=== PATIENT | male | born 1995 | race Caucasian/White ===

== ENCOUNTER 2017-02-09 14:56 | Emergency (ER) | payer BC, OTHER ==
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
[2017-02-09 17:00] VITALS: BP 125/88
--- NOTE | 2017-02-09 17:00 | RAD ---
Indication: Nasal pain and swelling following direct trauma. Comparison: No relevant prior exams available on the [facility] for comparison. Technique: Routine views of the nasal bones. Report: Soft tissue swelling over the bridge of the nose without evidence for nasal bone fracture. Normally aerated visualized paranasal sinuses. IMPRESSION: Negative for nasal bone fracture.
== END 2017-02-09 17:27 | disposition home or self-care (01) ==
LOC: UCEAST 14:56
DX: S00.33XA Contusion of nose, initial encounter (principal); S05.12XA Contusion of eyeball and orbital tissues, left eye, initial encounter; S05.11XA Contusion of eyeball and orbital tissues, right eye, initial encounter; Y04.2XXA Assault by strike against or bumped into by another person, initial encounter; Y93.89 Activity, other specified; Y92.159 Unspecified place in reform school as the place of occurrence of the external cause; Y99.0 Civilian activity done for income or pay
CPT/HCPCS: 70160; 99212; G0463

== ENCOUNTER 2017-07-24 18:00 | Emergency (ER) | payer BC, OTHER ==
[2017-07-24 18:40] VITALS: BP 131/82
--- NOTE | 2017-07-24 18:45 | UC ---
Skin Complaint HPI - HPI Summary HPI Summary: Pt presents accompanied by mother with complaints of hives on his legs and arms for the past week. He tells me that about 2 years ago he had this same thing happen and he was seen by an helper animal laboratory and tested for food allergies - which was negative. His hives eventually went away. Today he tells me that over the past week the same thing is happening. He will change from a cold to warm - or warm to cold - environment and he will get hives on his legs and arms within minutes that itch. They will remain there for up to 45 minutes and then go away. He has no other symptoms during this time frame. He is rather frustrated today and is asking for labwork and a referral to an helper animal laboratory that will test him for ENVIRONMENTAL allergies and not just food allergies. Currently he has no symptoms and no rashes/hives. - History of Current Complaint Chief Complaint: UCSkin Time Seen by Provider: 07/24/17 18:42 Stated Complaint: RASH Hx Obtained From: Patient Onset/Duration: Sudden Onset Pain Intensity: 0 Character: Exposure to Cold Continuous, Exposure to Heat Continuous, Hives - Allergy/Home Medications Allergies/Adverse Reactions: Allergies Allergy/AdvReac Type Severity Reaction Status Date / Time pet dander Allergy Shortness Uncoded 07/24/17 18:40 of Breath Review of Systems Constitutional: Negative Skin: Other - Hives ENT: Negative Respiratory: Negative Cardiovascular: Negative Gastrointestinal: Negative Musculoskeletal: Negative Neurological: Negative Psychological: Negative All Other Systems Reviewed And Are Negative: Yes PMH/Surg Hx/FS Hx/Imm Hx Previously Healthy: Yes - Surgical History Surgical History: None - Family History Known Family History: Positive: Hypertension, Other - NO pE> - Social History Occupation: Student Lives: With Family Alcohol Use: Occasionally Substance Use Type: Marijuana Substance Use Comment - Amount & Last Used: daily Smoking Status (MU): Never Smoked Tobacco Type: Cigarettes Amount Used/How Often: 1-2 per day Have You Smoked in the Last Year: No - Immunization History Most Recent Influenza Vaccination: Unknown Most Recent Tetanus Shot: Unknown Most Recent Pneumonia Vaccination: Unknown Vaccination Up to Date: Yes Physical Exam - Summary Physical Exam Summary: GENERAL: NAD. WDWN. No pain distress. SKIN: No rashes, sores, ulcers, masses, lesions. HEENT: Head: AT/NC Eyes: EOM intact. Conjunctiva clear without inflammation or discharge. Throat: Posterior oropharynx without exudates, erythema, or tonsillar enlargement. Uvula midline. NECK: Supple. Nontender. No lymphadenopathy. CHEST: CTAB. No r/r/w. No accessory muscle use. Breathing comfortably and in no distress. CV: RRR. Without m/r/g. Pulses intact. Brisk cap refill. NEURO: Alert. CN II-XII grossly intact. PSYCH: Age appropriate behavior. Triage Information Reviewed: Yes Vital Signs: Initial Vital Signs Temp 98.2 F 07/24/17 18:37 Pulse 99 07/24/17 18:37 Resp 16 07/24/17 18:37 BP 131/82 07/24/17 18:37 Pulse Ox 99 07/24/17 18:37 Course/Dx - Course Course Of Treatment: Will draw for CBC, TSH, and Vitamin B12 at pt and his mother's request. [facility] to [facility] - Diagnoses Provider Diagnoses: Hives Discharge - Discharge Plan Condition: Stable Disposition: HOME Patient Education Materials: Allergies (ED) Referrals: Lamont Mayfield MD [Primary Care Provider] - Jose A Leon MD [Medical Doctor] - As Soon As Possible Additional Instructions: If you develop a fever, shortness of breath, chest pain, new or worsening symptoms - please call your PCP or go to the ED. 1) Please follow up with [facility] as soon as possible for further investigation of your allergies.
[2017-07-25 10:59] LABS: ABS Basophils 0.1 10^3/ul (0-0.2); ABS Eosinophils 0 10^3/ul (0-0.6); ABS Lymphocytes 2.5 10^3/ul (1.0-4.8); ABS Monocytes 0.4 10^3/ul (0-0.8); ABS Neutrophils 3.7 10^3/ul (1.5-7.7); ABS Nucleated RBC 0.1 10^3/ul; Eosinophil % 0.5 % (0-6); Hematocrit 45 % (42-52); Hemoglobin 15.5 g/dl (14.0-18.0); Lymphocyte % 36.7 % (25-47); Mean Corpuscular HGB Conc 35 g/dl (31-36); Mean Corpuscular Hemoglobin 28 pg (27-31); Mean Corpuscular Volume 79 fL (80-94); Mean Platelet Volume 8 um3 (7.4-10.4); Nucleated Red Blood Cells % 0.9; Platelet Count 222 10^3/ul (150-450); Red Blood Count 5.62 10^6/ul (4.0-5.4); Red Cell Distribution Width 14 % (10.5-15); White Blood Count 6.7 10^3/ul (3.5-10.8)
== END 2017-07-24 19:09 | disposition home or self-care (01) ==
LOC: UCEAST 18:00
DX: L50.9 Urticaria, unspecified (principal)
CPT/HCPCS: 36415; 82607; 84443; 85025; 99211; G0463

== ENCOUNTER 2017-11-24 14:06 | Emergency (ER) | payer BC ==
[2017-11-24 14:18] VITALS: BP 146/83
--- NOTE | 2017-11-24 14:20 | UC ---
Abdominal Pain Male HPI - HPI Summary HPI Summary: 22 yo male presents with RLQ abdominal pain that began yesterday. He tells me that yesterday his pain developed in the morning and was intermittent throughout the day. Today has been more constant and pain has increased. Worse with movement, coughing, or riding in car over bumps. He denies fever, chills, SOB, chest pain, n/v/d/c, dysuria. - History of Current Complaint Chief Complaint: UCAbdominalPain Stated Complaint: ABD PAIN Time Seen by Provider: 11/24/17 14:20 Hx Obtained From: Patient Onset/Duration: Sudden Onset Severity Initially: Mild Severity Currently: Moderate Pain Intensity: 6 Pain Scale Used: 0-10 Numeric - Allergies/Home Medications Allergies/Adverse Reactions: Allergies Allergy/AdvReac Type Severity Reaction Status Date / Time pet dander Allergy Shortness Uncoded 11/24/17 15:08 of Breath PMH/Surg Hx/FS Hx/Imm Hx - Additional Past Medical History Additional PMH: None Previously Healthy: Yes - Surgical History Surgical History: None - Family History Known Family History: Positive: None, Hypertension, Other - NO pE> - Social History Occupation: Student Lives: With Family Alcohol Use: Occasionally Substance Use Type: Marijuana Substance Use Comment - Amount & Last Used: daily Smoking Status (MU): Never Smoked Tobacco Type: Cigarettes Amount Used/How Often: 1-2 per day Have You Smoked in the Last Year: No - Immunization History Most Recent Influenza Vaccination: Unknown Most Recent Tetanus Shot: Unknown Most Recent Pneumonia Vaccination: Unknown Vaccination Up to Date: Yes Review of Systems Constitutional: Negative Skin: Negative Respiratory: Negative Cardiovascular: Negative Gastrointestinal: Abdominal Pain Genitourinary: Negative Neurological: Negative Psychological: Negative All Other Systems Reviewed And Are Negative: Yes Physical Exam - Summary Physical Exam Summary: GENERAL: NAD. Obese SKIN: No rashes, sores, lesions, or open wounds. NECK: Supple. Nontender. No lymphadenopathy. CHEST: CTAB. No r/r/w. No accessory muscle use. Breathing comfortably and in no distress. CV: RRR. Without m/r/g. Pulses intact. Brisk cap refill. ABDOMEN: Moderate TTP RLQ at McBurney's point with guarding. Positive psoas sign. Weakly positive Rovsing's. Soft. No distention or guarding. Bowel sounds present. NEURO: Alert. CN II-XII grossly intact. PSYCH: Age appropriate behavior. Triage Information Reviewed: Yes Vital Signs: Initial Vital Signs Temp 97.9 F 11/24/17 14:16 Pulse 105 11/24/17 14:16 Resp 18 11/24/17 14:16 BP 146/83 11/24/17 14:16 Pulse Ox 97 11/24/17 14:16 Abd Pain Male Course/Dx - Course Course Of Treatment: Suspicion for acute appendicitis. I advised pt and mother that pt should be further evaluated in the ED. They were agreeable to this plan. Declined ambulance transfer. Mother will drive him. - Differential Dx/Clinical Impression Provider Diagnoses: RLQ pain Discharge - Sign-Out/Discharge Documenting (check all that apply): Discharge/Admit/Transfer - Discharge Plan Condition: Stable Disposition: HOME Referrals: Lamont Mayfield MD [Primary Care Provider] - Additional Instructions: Please go to the ER for further evaluation of your RLQ abdominal pain - Billing Disposition and Condition Condition: STABLE Disposition: Home
== END 2017-11-24 14:30 | disposition home or self-care (01) ==
LOC: UCEAST 14:06
DX: R10.31 Right lower quadrant pain (principal)
CPT/HCPCS: 99212; G0463

== ENCOUNTER 2017-11-24 15:02 | Observation (INO) | payer BC ==
[2017-11-24 15:39] LABS: ABS Basophils 0 10^3/ul (0-0.2); ABS Eosinophils 0.1 10^3/ul (0-0.6); ABS Lymphocytes 1.7 10^3/ul (1.0-4.8); ABS Monocytes 0.7 10^3/ul (0-0.8); ABS Neutrophils 7.4 10^3/ul (1.5-7.7); ABS Nucleated RBC 0 10^3/ul; Eosinophil % 0.6 % (0-6); Hematocrit 44 % (42-52); Hemoglobin 15.5 g/dl (14.0-18.0); Lymphocyte % 17.2 % (25-47); Mean Corpuscular HGB Conc 35 g/dl (31-36); Mean Corpuscular Hemoglobin 27 pg (27-31); Mean Corpuscular Volume 77 fL (80-94); Mean Platelet Volume 7.4 um3 (7.4-10.4); Nucleated Red Blood Cells % 0; Platelet Count 228 10^3/ul (150-450); Red Blood Count 5.66 10^6/ul (4.00-5.40); Red Cell Distribution Width 14 % (10.5-15)
[2017-11-24 15:58] LABS: EGFR Non-African American 118.1 (>60)
[2017-11-24] MEDS ORDERED: Iohexol 300* (CONTRAST) 10 ML SDV IV ONE (16:34)
--- NOTE | 2017-11-24 17:13 | RAD ---
INDICATION: Right lower quadrant pain. COMPARISON: There are no prior studies available for comparison. TECHNIQUE: A CT scan of the abdomen and pelvis was performed with intravenous and without oral contrast following intravenous injection of 150 ml of Omnipaque 300 nonionic contrast. Contiguous axial sections were obtained from the lung bases through the symphysis pubis. Images were reconstructed in the coronal and sagittal planes. FINDINGS: The lung bases are clear. No pleural effusion is present. The liver is normal in size and decreased in attenuation consistent with fatty infiltration. No significant focal abnormality is seen. No calcified gallstones are noted. The spleen is moderately enlarged measuring up to 17.2 cm in AP dimension. There is a well-defined fluid density lesion in the inferior aspect of the spleen measuring 4.5 x 3.5 cm most consistent with a cyst. There is a second much smaller cyst present in the posterior aspect of the spleen measuring 0.8 cm in size. The pancreas appears to be within normal limits. The kidneys and adrenal glands are normal in size. No hydronephrosis is seen. No significant focal renal abnormality is seen. The urinary bladder appeared normal in contour. No bladder wall thickening was present. The aorta is normal in caliber and demonstrates homogeneous contrast opacification. No significant enlarged retroperitoneal lymph nodes are seen. The stomach, small and large bowel appear nondistended. The appendix is dilated with a thickened wall measuring up to 1.5 cm in diameter. There is interstitial stranding in the adjacent fat most consistent with acute appendicitis. No abscess is seen. There is a small amount of free intraperitoneal fluid in the pelvis. No free intraperitoneal air is seen. No significant focal osseous abnormality is seen. IMPRESSION: 1. FINDINGS CONSISTENT WITH ACUTE APPENDICITIS. 2. SMALL AMOUNT OF FREE INTRAPERITONEAL FLUID, NO ABSCESS IS SEEN. 3. MODERATE SPLENOMEGALY AND SPLENIC CYST. 4. HEPATIC STEATOSIS.
[2017-11-24] MEDS ORDERED: Piperacillin/Tazobac ADVAN(*) 3.375 GM in NS 0.9% 100 ML* 100 ML IVPB ONE (17:45)
[2017-11-24 18:05] LABS: Urine Appearance Clear; Urine Blood Negative (Negative); Urine Color Yellow; Urine Ketones Negative (Negative); Urine Protein Negative (Negative); Urine Specific Gravity > 1.060 (1.010-1.030); Urine Urobilinogen Negative (Negative)
[2017-11-24] MEDS ORDERED: Bupivacaine 0.25% W/EPI* 10 ML SDV ONE (18:22)
[2017-11-24] MEDS ORDERED: fentaNYL* 50 MCG/ML 2 ML VIAL (100 MCG VIAL) ONE ×2 (18:52→19:29)
[2017-11-24] MEDS ORDERED: Midazolam* 1 MG/ML 5 ML VIAL (5 MG) ONE (18:52)
[2017-11-24] MEDS ORDERED: Rocuronium* 10 MG/ML VIAL ONE (19:11)
--- NOTE | 2017-11-24 19:29 | ED ---
Julián Herbert Devyn, scribed for Eduardo Valencia MD on 11/24/17 at 1538 . Abdominal Pain/Male - HPI Summary HPI Summary: This patient is a 22 year old M presenting to [facility] accompanied by his mother with a chief complaint of sharp RLQ pain since yesterday. The patient rates the pain 6/10 in severity. Symptoms aggravated by movement, walking, coughing. Patient denies fevers, N/V/D, trouble urinating, testicular pain, back pain, hematuria. Pt says there was no injury to the area. SHx of tobacco use, marijuana use, and EtOH. No past surgeries. Pt reports last eating before bed last night. - History of Current Complaint Chief Complaint: EDAbdPain Stated Complaint: ABD PAIN/FROM CC Time Seen by Provider: 11/24/17 15:20 Hx Obtained From: Patient Onset/Duration: Sudden Onset, Still Present Timing: Constant Severity Initially: Moderate Severity Currently: Moderate Pain Intensity: 6 Pain Scale Used: 0-10 Numeric Location: Discrete At: RLQ Character: Sharp - Allergies/Home Medications Allergies/Adverse Reactions: Allergies Allergy/AdvReac Type Severity Reaction Status Date / Time pet dander Allergy Shortness Uncoded 11/24/17 15:08 of Breath PMH/Surg Hx/FS Hx/Imm Hx Endocrine/Hematology History: Reports: Hx Thyroid Disease - HX HYPOTHYROID Denies: Hx Diabetes EENT History: Denies: Hx Deafness Psychiatric History: Denies: Hx Eating Disorder, Hx of Violent Episodes Against Others Infectious Disease History: No Infectious Disease History: Denies: Hx Clostridium Difficile, Hx Hepatitis, Hx Human Immunodeficiency Virus (HIV), Hx of Known/Suspected MRSA, Hx Shingles, Hx Tuberculosis, Hx Known/ Suspected VRE, Hx Known/Suspected VRSA, History Other Infectious Disease, Traveled Outside the [place] in Last 30 Days - Family History Known Family History: Positive: Hypertension, Other - NO pE> - Social History Alcohol Use: Occasionally Substance Use Type: Reports: Marijuana Substance Use Comment - Amount & Last Used: daily Smoking Status (MU): Never Smoked Tobacco Type: Cigarettes Amount Used/How Often: 1-2 per day Have You Smoked in the Last Year: No Review of Systems Negative: Fever Positive: Abdominal Pain - RLQ, sharp. Negative: Vomiting, Diarrhea, Nausea Negative: discharge, hematuria All Other Systems Reviewed And Are Negative: Yes Physical Exam - Summary Physical Exam Summary: Appearance: Well appearing, no pain distress Skin: warm, dry, reflects adequate perfusion. Head/face: normal Eyes: EOMI, SIMÓN ENT: normal Neck: supple, non-tender Respiratory: CTA, breath sounds present Cardiovascular: RRR, pulses symmetrical Abdomen: Tenderness in RLQ with guarding, no rebound Bowel Sounds: present Musculoskeletal: normal, strength/ROM intact Neuro: normal, sensory motor intact, A&Ox3 : No testicular tenderness, no hernia. Triage Information Reviewed: Yes Vital Signs On Initial Exam: Initial Vitals Temp Pulse Resp BP Pulse Ox 98.1 F 111 13 150/86 96 11/24/17 15:06 11/24/17 15:06 11/24/17 15:06 11/24/17 15:06 11/24/17 15:06 Vital Signs Reviewed: Yes Diagnostics - Vital Signs Vital Signs Temp Pulse Resp BP Pulse Ox 11/24/17 15:06 98.1 F 111 13 150/86 96 - Laboratory Lab Results: Lab Results 11/24/17 11/24/17 11/24/17 Range/Units 15:30 15:30 15:30 WBC 10.0 (3.5-10.8) 10^3/ul RBC 5.66 H (4.00-5.40) 10^6/ul Hgb 15.5 (14.0-18.0) g/dl Hct 44 (42-52) % MCV 77 L (80-94) fL MCH 27 (27-31) pg MCHC 35 (31-36) g/dl RDW 14 (10.5-15) % Plt Count 228 (150-450) 10^3/ul MPV 7.4 (7.4-10.4) um3 Neut % (Auto) 74.4 (38-83) % Lymph % (Auto) 17.2 L (25-47) % Milam % (Auto) 7.4 H (0-7) % Eos % (Auto) 0.6 (0-6) % Baso % (Auto) 0.4 (0-2) % Absolute Neuts (auto) 7.4 (1.5-7.7) 10^3/ul Absolute Lymphs (auto) 1.7 (1.0-4.8) 10^3/ul Absolute Monos (auto) 0.7 (0-0.8) 10^3/ul Absolute Eos (auto) 0.1 (0-0.6) 10^3/ul Absolute Basos (auto) 0 (0-0.2) 10^3/ul Absolute Nucleated RBC 0 10^3/ul Nucleated RBC % 0 Sodium 137 (135-145) mmol/L Potassium 3.9 (3.5-5.0) mmol/L Chloride 102 (101-111) mmol/L Carbon Dioxide 25 (22-32) mmol/L Anion Gap 10 (2-11) mmol/L BUN 11 (6-24) mg/dL Creatinine 0.83 (0.67-1.17) mg/dL Est GFR ( Amer) 142.9 (>60) Est GFR (Non-Af Amer) 118.1 (>60) BUN/Creatinine Ratio 13.3 (8-20) Glucose 98 (70-100) mg/dL Lactic Acid 0.5 (0.5-2.0) mmol/L Calcium 10.1 (8.6-10.3) mg/dL Total Bilirubin 1.30 H (0.2-1.0) mg/dL AST 13 (13-39) U/L ALT 23 (7-52) U/L Alkaline Phosphatase 68 (34-104) U/L C-Reactive Protein 62.62 H (<8.01) mg/L Total Protein 8.2 (6.4-8.9) g/dL Albumin 4.9 (3.2-5.2) g/dL Globulin 3.3 (2-4) g/dL Albumin/Globulin Ratio 1.5 (1-3) Lipase 20 (11.0-82.0) U/L Urine Color Urine Appearance Urine pH (5-9) Ur Specific [place] (1.010-1.030) Urine Protein (Negative) Urine Ketones (Negative) Urine Blood (Negative) Urine Nitrate (Negative) Urine Bilirubin (Negative) Urine Urobilinogen (Negative) Ur Leukocyte Esterase (Negative) Urine Glucose (Negative) 11/24/17 Range/Units 17:58 WBC (3.5-10.8) 10^3/ul RBC (4.00-5.40) 10^6/ul Hgb (14.0-18.0) g/dl Hct (42-52) % MCV (80-94) fL MCH (27-31) pg MCHC (31-36) g/dl RDW (10.5-15) % Plt Count (150-450) 10^3/ul MPV (7.4-10.4) um3 Neut % (Auto) (38-83) % Lymph % (Auto) (25-47) % Milam % (Auto) (0-7) % Eos % (Auto) (0-6) % Baso % (Auto) (0-2) % Absolute Neuts (auto) (1.5-7.7) 10^3/ul Absolute Lymphs (auto) (1.0-4.8) 10^3/ul Absolute Monos (auto) (0-0.8) 10^3/ul Absolute Eos (auto) (0-0.6) 10^3/ul Absolute Basos (auto) (0-0.2) 10^3/ul Absolute Nucleated RBC 10^3/ul Nucleated RBC % Sodium (135-145) mmol/L Potassium (3.5-5.0) mmol/L Chloride (101-111) mmol/L Carbon Dioxide (22-32) mmol/L Anion Gap (2-11) mmol/L BUN (6-24) mg/dL Creatinine (0.67-1.17) mg/dL Est GFR ( Amer) (>60) Est GFR (Non-Af Amer) (>60) BUN/Creatinine Ratio (8-20) Glucose (70-100) mg/dL Lactic Acid (0.5-2.0) mmol/L Calcium (8.6-10.3) mg/dL Total Bilirubin (0.2-1.0) mg/dL AST (13-39) U/L ALT (7-52) U/L Alkaline Phosphatase (34-104) U/L C-Reactive Protein (<8.01) mg/L Total Protein (6.4-8.9) g/dL Albumin (3.2-5.2) g/dL Globulin (2-4) g/dL Albumin/Globulin Ratio (1-3) Lipase (11.0-82.0) U/L Urine Color Yellow Urine Appearance Clear Urine pH 5.0 (5-9) Ur Specific [place] > 1.060 H (1.010-1.030) Urine Protein Negative (Negative) Urine Ketones Negative (Negative) Urine Blood Negative (Negative) Urine Nitrate Negative (Negative) Urine Bilirubin Negative (Negative) Urine Urobilinogen Negative (Negative) Ur Leukocyte Esterase Negative (Negative) Urine Glucose Negative (Negative) Result Diagrams: 11/24/17 15:30 11/24/17 15:30 Lab Statement: Any lab studies that have been ordered have been reviewed, and results considered in the medical decision making process. - CT abd/pelvis CT Interpretation Completed By: Radiologist - IMPRESSION: 1. FINDINGS CONSISTENT WITH ACUTE APPENDICITIS. 2. SMALL AMOUNT OF FREE INTRAPERITONEAL FLUID, NO ABSCESS IS SEEN. 3. MODERATE SPLENOMEGALY AND SPLENIC CYST. 4. HEPATIC STEATOSIS. ER Physician reviewed this report Abdominal Pain Fem Course/Dx - Course Course Of Treatment: Patient with worsening right lower quadrant pain throughout the day today. No fever. CT scan consistent with appendicitis. Surgeon came and evaluated the patient in the ER. Antibiotic given. Patient to the OR for appendectomy. - Diagnoses Provider Diagnoses: Acute appendicitis - Provider Notifications Discussed Care Of Patient With: Gary Dailey - He will see the patient in the operating room. Patient will be admitted and brought to the operating room. Time Discussed With Above Provider: 17:44 Discharge - Sign-Out/Discharge Documenting (check all that apply): Discharge/Admit/Transfer - Discharge Plan Condition: Fair Disposition: ADMITTED TO [facility] - Billing Disposition and Condition Condition: FAIR Disposition: Admitted to [facility] The documentation as recorded by the Julián zazueta Devyn accurately reflects the service I personally performed and the decisions made by , Eduardo Valencia MD.
--- NOTE | 2017-11-24 19:35 | HP ---
CC: Dr. Lamont Mayfield, [facility] * HOSPITAL ADMISSION HISTORY AND PHYSICAL: DATE OF ADMISSION: 11/24/17 CHIEF COMPLAINT: Right lower quadrant abdominal pain. HISTORY OF PRESENT ILLNESS: Mr. Mikey Thurston is a 22-year-old gentleman, who lives with his mother, who developed generalized abdominal discomfort along with some nausea and vomiting and anorexia yesterday. His pain worsened and became more localized in the right lower quadrant today, and when this did not improve, he presented initially to a [facility] and was referred to the emergency room for further evaluation and care. He was noted to be afebrile and have a normal white blood cell count, but he did have an elevated C -reactive protein. He was noted to have tenderness in the right lower quadrant on exam. He subsequently underwent a CT scan of the abdomen and pelvis. I did review these images. It shows findings consistent with acute appendicitis with a dilated appendix of about 1.5 cm with some periappendiceal stranding with no evidence of abscess, extraluminal air, or fluid. Surgical consultation was obtained. PAST MEDICAL HISTORY: 1. Anxiety/depression. 2. Autism. PAST SURGICAL HISTORY: None. MEDICATIONS: He has no home medicines. ALLERGIES: PET DANDER, but he has no known drug allergies. 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 He uses tobacco on a regular basis. He does not use alcohol. REVIEW OF SYSTEMS: Cerebrovascular: No dizziness or visual disturbances. Cardiovascular: No chest pain or shortness of breath. Pulmonary: No wheezing or hemoptysis. GI: As per above. : No urgency or hematuria. PHYSICAL EXAMINATION GENERAL: He is an obese male, appears to be in no apparent distress. He is awake, alert, and conversive. VITAL SIGNS: He is afebrile. Pulse 85, blood pressure 138/86, oxygen saturation 97%. HEENT: Oral mucosa is slightly dry. LUNGS: Clear to auscultation with normal respiratory effort. HEART: Regular rate and rhythm without murmurs, rubs, or gallops. ABDOMEN: Soft and nondistended. No prior surgical incisions and there are no hernias. He has tenderness in the right lower quadrant with some voluntary guarding. EXTREMITIES: Showed no cyanosis or edema. IMPRESSION: Acute appendicitis. PLAN: Laparoscopic appendectomy today. I discussed the findings on history, physical exam and the CAT scan, all which are consistent with acute appendicitis. At this point, we reviewed the current recommended care of acute appendicitis and here in the [place] recommended treatment is to proceed to surgery with a laparoscopic appendectomy. I also discussed treatment with IV and oral antibiotics and I did not recommend this pathway and both the patient and his mother would like to proceed with surgery. The risks of, but not limited to, bleeding, infection, intraabdominal abscess formation, injury to peritoneal and retroperitoneal structures, possibility of an open procedure, possibility of an abscess formation, the risk of general anesthesia, deep vein thrombosis, hospital stay, and recovery times were all explained. We will keep him n.p.o., start IV antibiotics, and plan for surgery this evening. [id number]/[facility] #: [id number] SHANELLE
[2017-11-24] MEDS ORDERED: Lidocaine 2% PF * 5 ML VIAL ONE (19:52)
[2017-11-24] MEDS ORDERED: Succinylcholine* 20 MG/ML 10 ML VIAL ONE (19:52)
[2017-11-24] MEDS ORDERED: Dexamethasone IV* 4 MG/ML 1 ML (4 MG) ONE (19:52)
[2017-11-24] MEDS ORDERED: Propofol* 10 MG/ML 20 ML BTL IV PUSH ONE (19:52)
[2017-11-24] MEDS ORDERED: Ketorolac INJ* 30 MG/ML 1 ML VIAL ONE (19:52)
[2017-11-24] MEDS ORDERED: Ondansetron INJ* 2 MG/ML VIAL ONE (19:52)
[2017-11-24] MEDS ORDERED: DiMENhydriNATE IV* 50 MG/ML VIAL ONE (19:52)
[2017-11-24] MEDS ORDERED: HYDROmorphone INJ* 0.5 MG/0.5 ML SYRINGE ONE ×4 (20:21→22:03)
[2017-11-24] MEDS ORDERED: Naloxone* 0.4 MG/ML 1 ML VIAL IV PRN (20:27)
[2017-11-24] MEDS ORDERED: DiMENhydriNATE IV* 50 MG/ML VIAL IV PUSH PRN (20:27)
[2017-11-24] MEDS ORDERED: oxyCODONE/Acetamin 5/325 MG* TAB PO PRN (20:27)
[2017-11-24] MEDS ORDERED: Morphine VIAL* 4 MG/ML VIAL (1 ml vial) IV PRN (21:24)
[2017-11-24] MEDS ORDERED: Ketorolac INJ* 30 MG/ML 1 ML VIAL IV PUSH PRN (21:24)
[2017-11-24] MEDS ORDERED: Ondansetron ODT TAB* 4 MG SL PRN (21:24)
[2017-11-24] MEDS ORDERED: Acetaminophen TAB* 325 MG PO PRN (21:24)
[2017-11-24] MEDS: HYDROmorphone INJ* 0.5 MG/0.5 ML SYRINGE IV PRN ×3 (21:50→22:06)
[2017-11-24] MEDS: NS 0.9% 1000 ML* 1,000 ML IV SCH (23:19)
--- NOTE | 2017-11-24 23:19 | OP ---
CC: [facility], attention: Lamont Mayfield MD * DATE OF OPERATION: 11/24/17 - ROOM #331 DATE OF : [birth year] SURGEON: Gary Dailey MD PRODUCTION COUNTER: None. ANESTHESIOLOGIST: Dr. Kearns. ANESTHESIA: General with local. PRE-OP DIAGNOSIS: Acute appendicitis. POST-OP DIAGNOSIS: Acute suppurative appendicitis. OPERATIVE PROCEDURE: Laparoscopic appendectomy. ESTIMATED BLOOD LOSS: Minimal. IV FLUIDS: 1 L of crystalloid. SPECIMEN: Appendix. WOUND CLASSIFICATION: Clean-contaminated. DRAINS: None. COMPLICATIONS: None. BRIEF HISTORY: Mr. Mikey Thurston is a 22-year-old gentleman presenting to the emergency room with 24 hours of abdominal pain, becoming localized in the right lower quadrant. His white blood cell count was normal. A CAT scan confirmed acute appendicitis. He is now being taken to the operating room for an appendectomy. DESCRIPTION OF PROCEDURE: Written informed consent was obtained, the abdomen was marked with indelible ink, and preoperative antibiotics were administered. The patient was taken to the operating room and placed in the supine position. Sequential compression devices and a warming blanket were applied. General anesthesia was administered and the abdomen was prepped and draped in the usual sterile fashion. Time-out verification was completed. The vertical incision was made 3 or 4 fingerbreadths above the umbilicus at the midline and the midline fascia was divided and the peritoneal cavity was entered under vision. A 12-mm blunt port was inserted. The abdomen was insufflated to 15 mmHg. Under direct vision, a 5-mm port was placed in the left lower abdominal wall and a second 5-mm port was placed in the suprapubic position. I evaluated the pelvis. There was no evidence of purulence or generalized inflammation. There was no fluid or abscess noted. There was some omentum that was draped over the appendix. This was removed bluntly and that this revealed a suppuratively inflamed edematous appendix without evidence of gangrene or perforation. It appeared to be completely intraperitoneal. The mesoappendix was taken from distal appendix towards the cecum with the LigaSure device. The base of the appendix was unremarkable. Just a small portions of the lateral peritoneal attachments were divided to bring the base of the cecum into better view. I then used a zabala load of 45 mm EndoGIA stapler to divide the appendix at its base. The appendix was then placed in an EndoCatch bag and brought out through the umbilical incision. Hemostasis was assured. The staple line was intact and I used about 1 L of saline to irrigate the pelvis and right lower quadrant. I then used the EndoCatch needle to close the upper midline incision under direct vision with a laparoscope with 3 interrupted 0 Vicryl sutures. Ports were then removed. All 3 incisions were approximated with subcuticular 4- 0 Vicryl sutures. Steri-Strips were applied. The patient tolerated the procedure well, was taken to the recovery room in stable condition. [id number]/[facility] #: [id number] MTDShweta
[2017-11-25] MEDS: oxyCODONE/Acetamin 5/325 MG* TAB PO PRN ×2 (00:39→08:00)
[2017-11-25] MEDS: NS 0.9% 1000 ML* 1,000 ML IV SCH (07:21)
[2017-11-25 07:58] VITALS: BP 136/64
--- NOTE | 2017-11-25 09:58 | PN ---
Progress Note - Progress Note Date of Service: 11/25/17 SOAP: Subjective: Minimal sleep last night Pain adequately controlled Tolerating some water Objective: Temp Pulse Resp BP Pulse Ox 98.3 F 83 18 136/64 97 11/25/17 05:27 11/25/17 07:39 11/25/17 08:00 11/25/17 07:39 11/25/17 07:39 Intake & Output 11/23/17 11/24/17 11/25/17 11/26/17 06:59 06:59 06:59 06:59 Intake Total 2200 1320 Output Total 975 525 Balance 1225 795 Weight 290 lb Intake: IV Fluids 2100 960 LR 2000 NS (0.9%) 960 Oral 100 360 Output: Urine 975 525 PEX: Comfortable Lungs are clear Abd is soft and non-distended. Incisions are clean and dry. Bowel sounds are present Assessment: POD# 1 s/p lap appy for acute appendicitis Plan: Advance diet Increase activity Pulmonary toilet Plan D/C after lunch--office follow up No further antibiotics needed.
== END 2017-11-25 11:10 | disposition home or self-care (01) ==
LOC: ED 15:02 → OR 18:29 → INTOOBSV 23:10 → SSU 23:10
PROVIDERS: ADMIT Surgery; ATTEND Surgery
PROC: 0DTJ4ZZ Resection of Appendix, Percutaneous Endoscopic Approach (ICD-10-PCS; principal; 2017-11-24 19:00)
DX: K35.80 Unspecified acute appendicitis (principal); F31.9 Bipolar disorder, unspecified; F32.9 Major depressive disorder, single episode, unspecified; F84.0 Autistic disorder; E03.9 Hypothyroidism, unspecified; R16.1 Splenomegaly, not elsewhere classified; D73.4 Cyst of spleen
CPT/HCPCS: 36415; 74177; 80053; 81003; 83605; 83690; 85025; 86140; 88304; 99284; A9270-GY; C1776; G0378; J0330; J1100; J1170; J1240; J1885; J2250; J2405; J2543; J2704; J3010; Q9967

== ENCOUNTER 2017-12-19 13:30 | Emergency (ER) | payer BC ==
--- OUTSIDE RECORDS SUMMARY | 2017-12-19 13:37 | XMS REPORT ---
:1995 External Reference #:[id number] Author Organization [employer] Address [address] [place] [address] [place] [address] Phone [phone] Care Team Providers Name Role Phone Gary Dailey MD Care Team Information Graphics Intern Unavailable Payers Type Date Identification Numbers Payment Provider Subscriber Commercial Policy Number: [id number] [employer] Zohaib Addison PayID: [id number] [address] [address] [place] [address] Problems Description No Information Family History Date Family Member(s) Problem(s) Comments Mother Hypertension Grandfather Brain Cancer Social History Type Date Description Comments Marital Status Single 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 Occasionally consumes alcohol Smoking Patient is a current smoker, smokes every day Recreational Drug Use Sporadically uses Marijuana Daily Caffeine Does Not Consume Caffeine Exercise Type/Frequency Does not exercise Allergies, Adverse Reactions, Alerts Date Description Reaction Status Severity Comments 11/27/2017 NKDA active Medications Medication Date Status Form Strength Qnty SIG Indications Ordering Provider No Active 11/27/2017 Active Unknown Medications Vital Signs Date Vital Result Comment 12/03/2017 Height 73 inches 6'1" Weight 290.00 lb Heart Rate 74 /min BP Systolic 116 mmHg BP Diastolic 80 mmHg Respiratory Rate 16 /min Body Temperature 97.8 F BMI (Body Mass Index) 38.3 kg/m2 Results Test Date Test Result H/L Range Note Laboratory test 11/24/2017 Surgical Pathology SEE RESULT BELOW 1 finding 1 SEE RESULT BELOW Name: ZOHAIB ADDISON : [address]: Gary Dailey MD Acct: [id number] Unit: [id number] AGE: 22 Location: [place] [address]- Re11/24/17 Dis: 11/25/17 SEX: M Status: DIS Mihai SPEC: [id number] MIGUEL: 11/24/[address]: Gary Dailey MD REQ: [id number] RECD: 11/24/17 STATUS: SOUT _ ORDERED: LEVEL 3 FINAL DIAGNOSIS Appendix, appendectomy: -- Acute suppurative appendicitis and anastasiia-appendicitis. PRE-OPERATIVE DIAGNOSIS Acute appendicitis. GROSS DESCRIPTION The specimen is received in formalin labeled, Appendix, and consists of a 10.4 cm appendix with abundant attached mesoappendix. The external diameter ranges from 1.2 cm to 1.7 cm in the mid to distal tip. The serosa is predominantly smooth zabala-brown with moderate focal zabala-white fibropurulent exudate and a few fibromembranous adhesions. The lumen measures up to 0.9 cm and contains purulent fecal material. The mucosa is zabala-white with scant hemorrhage and the wall thickness measures up to 0.2 cm. Mold Shop Supervisor sections, two cassettes. Signed by and Reported on: Mariah Rice MD 11/26/17 1451 END OF REPORT DEPARTMENT OF PATHOLOGY, [address], [place], [place] [address] Martín Munoz M.D. Director [facility] # [id number] Procedures Date CPT Code Description Status 11/24/2017 19009 Laparoscopy, Surgical, Appendectomy Completed Encounters Type Date Location Provider CPT E/M Dx Office Visit 11/24/2017 [facility], [address] K35.3 7:00a [place] Plan of Care 12/03/2017 - Gary Dailey MDK35.3 Acute appendicitis with localized peritonitisFollow up:See work release No follow up needed.
[2017-12-19 14:23] VITALS: BP 147/92
--- NOTE | 2017-12-19 14:43 | ED ---
GI/ HPI - HPI Summary HPI Summary: 22-year-old male presents with diarrhea since Saturday. He states that on Saturday he started to develop nausea and vomiting. He states that stool was very loose. He denies any mucus or blood in his stool. He has not been on antibiotics recently. Denies eating anything different. No one else is sick. He admits to generalized abdominal pain. He states the pain goes away after he has the diarrhea. No cough. No sore throat. He also admits to generalized headache. He states he's been able to keep liquids down. He has not been able to eat much due to the vomiting. He has no medical conditions. 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 He denies any pain with urination. No fevers. He has appendix out 3 weeks ago. - History of Current Complaint Chief Complaint: UCAbdominalPain Time Seen by Provider: 12/19/17 14:34 Stated Complaint: SOFT STOOL Pain Intensity: 4 - Additional Pertinent History Primary Care Physician: [id number] - Allergy/Home Medications Allergies/Adverse Reactions: Allergies Allergy/AdvReac Type Severity Reaction Status Date / Time No Known Drug Allergies Allergy See Comment Verified 12/19/17 14:16 pet dander Allergy Shortness Uncoded 12/19/17 14:16 of Breath PMH/Surg Hx/FS Hx/Imm Hx Endocrine/Hematology History: Reports: Hx Thyroid Disease - HX HYPOTHYROID Denies: Hx Diabetes Cardiovascular History: Denies: Hx Hypertension Respiratory History: Denies: Hx Asthma, Hx Chronic Obstructive Pulmonary Disease (COPD) GI History: Denies: Hx Ulcer Sensory History: Reports: Hx Contacts or Glasses Denies: Hx Deafness, Hx Hearing Aid Opthamlomology History: Reports: Hx Contacts or Glasses Psychiatric History: Denies: Hx Eating Disorder, Hx of Violent Episodes Against Others - Surgical History Surgery Procedure, Year, and Place: appy 11/2017 Infectious Disease History: No Infectious Disease History: Denies: Hx Clostridium Difficile, Hx Hepatitis, Hx Human Immunodeficiency Virus (HIV), Hx of Known/Suspected MRSA, Hx Shingles, Hx Tuberculosis, Hx Known/ Suspected VRE, Hx Known/Suspected VRSA, History Other Infectious Disease, Traveled Outside the [place] in Last 30 Days - Family History Known Family History: Positive: None, Hypertension, Other - NO pE> - Social History Alcohol Use: Occasionally Substance Use Type: Reports: Marijuana Substance Use Comment - Amount & Last Used: daily Smoking Status (MU): Former Smoker Type: Cigarettes Amount Used/How Often: 1-2 per day Have You Smoked in the Last Year: No Review of Systems Negative: Fever Negative: Chest Pain Negative: Shortness Of Breath Positive: Abdominal Pain, Vomiting, Diarrhea, Nausea All Other Systems Reviewed And Are Negative: Yes Physical Exam Triage Information Reviewed: Yes Vital Signs On Initial Exam: Initial Vitals Temp Pulse Resp BP Pulse Ox 97.6 F 96 16 147/92 99 12/19/17 14:17 12/19/17 14:17 12/19/17 14:17 12/19/17 14:17 12/19/17 14:17 Vital Signs Reviewed: Yes Appearance: Positive: Well-Appearing Skin: Positive: Warm, Dry Head/Face: Positive: Normal Head/Face Inspection Eyes: Positive: Normal, Conjunctiva Clear ENT: Positive: Pharynx normal Respiratory/Lung Sounds: Positive: Clear to Auscultation, Breath Sounds Present Cardiovascular: Positive: Normal, RRR Abdomen Description: Positive: Nontender, Soft Bowel Sounds: Positive: Present Musculoskeletal: Positive: Normal Neurological: Positive: Normal Psychiatric: Positive: Normal Diagnostics - Vital Signs Vital Signs Temp Pulse Resp BP Pulse Ox 12/19/17 14:17 97.6 F 96 16 147/92 99 - Laboratory Lab Statement: Any lab studies that have been ordered have been reviewed, and results considered in the medical decision making process. GIGU Course/Dx - Course Course Of Treatment: 22-year-old male presents with diarrhea since Saturday. He states that on Saturday he started to develop nausea and vomiting. He states that stool was very loose. He denies any mucus or blood in his stool. He has not been on antibiotics recently. Denies eating anything different. No one else is sick. He admits to generalized abdominal pain. He states the pain goes away after he has the diarrhea. No cough. No sore throat. He also admits to generalized headache. He states he's been able to keep liquids down. He has not been able to eat much due to the vomiting. He has no medical conditions. 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 He denies any pain with urination. No fevers. He has appendix out 3 weeks ago. On exam abdomen soft nontender. Vital stable. We'll discharge with Zofran. will have est care with primary as patient bp is elevated at this time. Patient understands agrees with plan. - Diagnoses Differential Diagnoses - Male: Gastroenteritis (Bacterial), Gastroenteritis ( Viral), Urinary Tract Infection Provider Diagnoses: Nausea vomiting and diarrhea Discharge - Sign-Out/Discharge Documenting (check all that apply): Patient Departure - Discharge Plan Condition: Good Disposition: HOME Prescriptions: Ondansetron ODT TAB* [Zofran 4 MG Odt TAB*] 4 mg PO Q6H PRN #16 tab.odt PRN Reason: Nausea Patient Education Materials: Gastroenteritis (ED) Referrals: Lamont Mayfield MD [Primary Care Provider] - Additional Instructions: Can take Zofran every 6 hours as needed for nausea Drink small amounts of fluid as tolerated When able to eat follow BRAT diet: Bananas, rice, applesauce, toast Take ibuprofen or Tylenol for pain as needed every 6 hours Follow up with primary within 5 days Return to ED if develop fever that does not respond to Tylenol or ibuprofen, severe abdominal pain, or any new or worsening symptoms - Billing Disposition and Condition Condition: GOOD Disposition: Home
== END 2017-12-19 14:51 | disposition home or self-care (01) ==
LOC: UCEAST 13:30
DX: R11.2 Nausea with vomiting, unspecified (principal); R19.7 Diarrhea, unspecified; R51 Headache; Z87.891 Personal history of nicotine dependence
CPT/HCPCS: 99212; G0463

== ENCOUNTER 2019-02-23 13:31 | Emergency (ER) | payer BC ==
--- NOTE | 2019-02-23 15:36 | UC ---
UC General HPI - HPI Summary HPI Summary: [id number]-ref male comes in with chief complaint of one week of intermittent tongue pain. Is primarily at the tip of the tongue and he occasionally gets pain. After he first noticed that he thought maybe it was because he something hot and burned his tongue. Overnight he noticed small raised areas on his tongue. Fevers no chills no known history of herpes simple virus. Feels well otherwise. Has had intermittent left here itching. No rhinorrhea no difficulty swallowing. - History of Current Complaint Chief Complaint: UCGeneralIllness Stated Complaint: TONGUE-SKIN COMPLAINT Time Seen by Provider: 02/23/19 15:16 Pain Intensity: 0 - Allergy/Home Medications Allergies/Adverse Reactions: Allergies Allergy/AdvReac Type Severity Reaction Status Date / Time No Known Drug Allergies Allergy See Comment Verified 02/23/19 14:11 pet dander Allergy Shortness Uncoded 02/23/19 14:11 of Breath Home Medications: Home Medications NK [No Home Medications Reported] 02/23/19 [History Confirmed 02/23/19] PMH/Surg Hx/FS Hx/Imm Hx Previously Healthy: Yes - Surgical History Surgical History: Yes Surgery Procedure, Year, and Place: appy 11/2017 - Family History Known Family History: Positive: None, Hypertension, Other - NO pE> - Social History Alcohol Use: Occasionally Substance Use Type: Marijuana Substance Use Comment - Amount & Last Used: daily Smoking Status (MU): Light Every Day Tobacco Smoker Type: Cigarettes Amount Used/How Often: 1-2 per day Have You Smoked in the Last Year: No - Immunization History Most Recent Influenza Vaccination: Unknown Most Recent Tetanus Shot: Unknown Most Recent Pneumonia Vaccination: Unknown Vaccination Up to Date: Yes Review of Systems All Other Systems Reviewed And Are Negative: Yes Constitutional: Positive: Negative Skin: Positive: Negative Eyes: Positive: Negative ENT: Positive: Other - SEE HPI Respiratory: Positive: Negative Cardiovascular: Positive: Negative Gastrointestinal: Positive: Negative Motor: Positive: Negative Neurovascular: Positive: Negative Musculoskeletal: Positive: Negative Neurological: Positive: Negative Psychological: Positive: Negative Is Patient Immunocompromised?: No Physical Exam Triage Information Reviewed: Yes Appearance: Well-Appearing, No Pain Distress, Well-Nourished Vital Signs: Initial Vital Signs Temp 97.9 F 02/23/19 14:08 Pulse 83 02/23/19 14:08 Resp 18 02/23/19 14:08 BP 139/73 02/23/19 14:08 Pulse Ox 99 02/23/19 14:08 Vital Signs Reviewed: Yes Eye Exam: Normal Eyes: Positive: Conjunctiva Clear ENT: Positive: Pharynx normal, Other - Patient has cerumen in both ear canals. On the oral mucosa and the tongue he denies any ulcerations. There are 1 mm slightly raised areas on the tongue that are fairly evenly distributed. Neck: Positive: Supple Respiratory: Positive: Lungs clear, Normal breath sounds, No respiratory distress Cardiovascular: Positive: RRR Musculoskeletal: Positive: ROM Intact Neurological: Positive: Alert Psychological: Positive: Age Appropriate Behavior Skin Exam: Normal Course/Dx - Course Course Of Treatment: On examination there are small raised areas of the tongue however I do not see any ulcerations. At this time this would be an atypical presentation of herpes simplex virus. At this time the plan is to check for HSV-1 and 2 and also HIV. Do not plan to treat with valacyclovir unless he has ulceration or positive acute HSV results. The complaint of the left ear intermittent itching may be due to the cerumen and ears were irrigated today in clinic. Plan is if he is not completely improved he'll follow-up with ENT. The patient's mother wishes him to go to Dr. Prater. - Diagnoses Provider Diagnosis: Tongue pain, Excessive cerumen in ear canal Discharge ED - Sign-Out/Discharge Documenting (check all that apply): Patient Departure All imaging exams completed and their final reports reviewed: No Studies - Discharge Plan Condition: Stable Disposition: HOME Patient Education Materials: Oral Herpes Simplex Virus Infections (ED), Cerumen Impaction (ED) Referrals: Lamont Mayfield MD [Primary Care Provider] - Nacho Prater MD [Medical Doctor] - Additional Instructions: FOLLOW UP WITH DR PRATER, ENT, IF NOT COMPLETELY IMPROVED. GET REEVALUATED SOONER IF NOT IMPROVING OR YOUR CONDITION WORSENS OR ANY QUESTIONS OR CONCERNS - Billing Disposition and Condition Condition: STABLE Disposition: Home
[2019-02-23 16:16] VITALS: BP 140/70
[2019-02-24 13:06] LABS: HIV 4th Generation Nonreactive (Nonreactive)
[2019-02-25 13:40] LABS: Herpes Simplex Virus I IgG AB Negative (Negative); Herpes Simplex Virus II IgG AB Negative (Negative)
== END 2019-02-23 16:14 | disposition home or self-care (01) ==
LOC: UCCORT 13:31
DX: K14.6 Glossodynia (principal); H93.8X2 Other specified disorders of left ear; F17.210 Nicotine dependence, cigarettes, uncomplicated; Z91.09 Other allergy status, other than to drugs and biological substances
CPT/HCPCS: 36415; 86694; 86695; 86696; 87389; 99213; G0463